=== PATIENT | female | born 1975 | race Caucasian/White ===

== ENCOUNTER 2021-06-07 11:50 | Emergency (ER) | payer OTHER ==
[~2021-06-07 11:50] MED LIST: CYCLOBENZAPRINE10 MG PO; NORCO 5-325 TA1 EACH PO
[2021-06-07 13:40] LABS: HEMOGLOBIN 16.1 gm/dl (12.3-15.3); RED BLOOD COUNT 5.55 M/UL (4.00-5.10); WHITE BLOOD COUNT 4.9 K/UL (4.5-11.0)
[2021-06-07 14:06] LABS: BUN/CREATININE RATIO 20 (0-10)
[2021-06-07] MEDS ORDERED: ZOFRAN 4 MG TAB4 MG PO (17:13)
== END 2021-06-07 17:54 | disposition home or self-care (01) ==
LOC: ER1 11:50
PROVIDERS: Physician Assistant Medical
DX: U07.1 COVID-19 (principal); K52.9 Noninfective gastroenteritis and colitis, unspecified; E86.0 Dehydration; Z23 Encounter for immunization; E11.9 Type 2 diabetes mellitus without complications; I10 Essential (primary) hypertension
CPT/HCPCS: 80053; 81001; 82009; 83605; 83690; 85025; 96374; 99284; J2405; M0245; Q9967; U0002